=== PATIENT | male | born 1965 | race Caucasian/White ===

== ENCOUNTER 2021-11-01 10:11 | Outpatient (CLI) | payer BC, SELFPAY ==
[2021-11-01 14:35] LABS: Albumin* 4.3 g/dL (3.3-5.0); Chloride* 99 mmol/L (96-114); Sodium* 137 mmol/L (135-149)
[2021-11-01 14:36] LABS: Potassium* 4.1 mmol/L (3.6-5.1)
[2021-11-01 14:38] LABS: Alanine Aminotransferase* 54 U/L (4-50); Alkaline Phosphatase* 62 U/L (40-150); Aspartate Amino Transferase* 55 U/L (12-35); Bilirubin Total* 1.2 mg/dL (0.1-1.5); Blood Urea Nitrogen* 14 mg/dL (7-30); Carbon Dioxide* 28 mmol/L (20-32); Cholesterol* 183 mg/dL (90-199); Creatinine* 0.8 mg/dL (0.5-1.5); Estimated Glomerular Filt Rate 103 ml/min; Glucose* 132 mg/dL (60-115); Total Protein* 8.3 g/dL (6.0-8.3); Triglycerides* 101 mg/dL (40-149)
[2021-11-01 14:39] LABS: Calcium* 9.3 mg/dL (8.4-10.6); HDL Cholesterol* 56 mg/dL (>=40); LDL Cholesterol Calculated 107 mg/dL (<100)
[2021-11-01 15:08] LABS: PSA Screen* 0.63 ng/mL (0.10-4.00)
== END 2021-11-01 10:12 | disposition home or self-care (01) ==
PROVIDERS: PCP Emergency Medicine; Visit Provider Emergency Medicine
DX: Z00.00 Encounter for general adult medical examination without abnormal findings (principal); E78.5 Hyperlipidemia, unspecified; I10 Essential (primary) hypertension; F41.9 Anxiety disorder, unspecified; Z12.5 Encounter for screening for malignant neoplasm of prostate; E55.9 Vitamin D deficiency, unspecified
CPT/HCPCS: 80053; 80061; 84153

== ENCOUNTER 2021-11-07 08:45 | Outpatient (CLI) | payer BC, SELFPAY | END 2021-11-07 08:46 | disposition home or self-care (01) | LOC: OP CLINIC 08:46 | PROVIDERS: PCP Emergency Medicine; Visit Provider Surgery | DX: Z12.11 Encounter for screening for malignant neoplasm of colon (principal); K63.5 Polyp of colon; K57.30 Diverticulosis of large intestine without perforation or abscess without bleeding | CPT/HCPCS: 45385; 88305; 99153; J2250; J3010 ==

== ENCOUNTER 2022-05-14 14:24 | Outpatient (CLI) | payer BC, SELFPAY ==
[2022-05-14 14:33] LABS: Chloride* 101 mmol/L (96-114); Potassium* 3.8 mmol/L (3.6-5.1); Sodium* 139 mmol/L (135-149)
[2022-05-14 14:36] LABS: Carbon Dioxide* 28 mmol/L (20-32); Creatinine* 0.8 mg/dL (0.5-1.5); Estimated Glomerular Filt Rate 103 ml/min
[2022-05-14 14:37] LABS: Blood Urea Nitrogen* 12 mg/dL (7-30); Calcium* 8.5 mg/dL (8.4-10.6); Glucose* 112 mg/dL (60-115)
== END 2022-05-14 14:25 | disposition home or self-care (01) ==
PROVIDERS: PCP Emergency Medicine; Visit Provider Emergency Medicine
DX: I10 Essential (primary) hypertension (principal)
CPT/HCPCS: 80048

== ENCOUNTER 2022-07-11 16:32 | Outpatient (CLI) | payer BC, SELFPAY ==
[2022-07-11 18:11] LABS: Magnesium* 1.5 mg/dL (1.5-2.6)
== END 2022-07-11 16:33 | disposition home or self-care (01) ==
PROVIDERS: PCP Emergency Medicine; Visit Provider Emergency Medicine
DX: E83.51 Hypocalcemia (principal)
CPT/HCPCS: 83735

== ENCOUNTER 2022-07-16 14:45 | Outpatient (CLI) | payer BC, SELFPAY | END 2022-07-16 14:46 | disposition home or self-care (01) | LOC: RAD 14:45 | PROVIDERS: PCP Emergency Medicine; Visit Provider Emergency Medicine | DX: R94.31 Abnormal electrocardiogram [ECG] [EKG] (principal) | CPT/HCPCS: 93306; J1170; Q9957 ==

== ENCOUNTER 2022-07-27 11:09 | Outpatient (CLI) | payer BC, SELFPAY | END 2022-07-27 11:10 | disposition home or self-care (01) | PROVIDERS: PCP Emergency Medicine; Visit Provider Orthopaedic Surgery Sports Medicine | DX: Z01.818 Encounter for other preprocedural examination (principal) | CPT/HCPCS: 36415; 86850; 86900; 86901 ==

== ENCOUNTER 2022-07-30 09:09 | Day surgery (SDC) | payer BC, SELFPAY ==
[2022-07-30] VITALS (20 sets, daily range): BP systolic 112–172; BP diastolic 62–140; PULSE 74–100; RESP 14–18; TEMP 36.3–36.8; O2SAT 90–99; BMI 39.4
[2022-07-30] MEDS: LACTATED RINGERS 1000 ML 1,000 ML 100 ML IV ×2 (09:05→11:45)
--- NOTE | 2022-07-30 09:18 | W.ANESCHARGE ---
Anesthesia Charges Start Date/Time Anesthesia Start Date: 07/30/22 Anesthesia Start Time: 11:14 Stop Date/Time Anesthesia Stop Date: 07/30/22 Anesthesia Stop Time: 14:17
[2022-07-30] MEDS: ACETAMINOPHEN 500 MG TABLET 1000 MG PO ×2 (09:50→17:41)
[2022-07-30] MEDS: OXYCODONE (CR) 10 MG TAB.ER.12H PO (09:50)
[2022-07-30] MEDS: CELECOXIB 200 MG CAPSULE PO ×2 (09:50→21:25)
[2022-07-30 09:57] LABS: SARS PCR* Negative SARS-CoV-2 (Negative)
--- NOTE | 2022-07-30 09:58 | CRLHL7_ITS ---
For Patients: As a result of the Cures Act, medical imaging exams and procedure reports are released immediately into your electronic medical record. You may view this report before your referring provider. If you have questions, please contact your health care provider. Indication: Postop Technique: AP pelvis and left hip views Comparison: No comparison Findings: Left hip arthroplasty in satisfactory position. Postoperative edema and soft tissue gas. Dictated by Shabana Zhong MD @ 07/30/2022 2:51:01 PM (Electronically Signed)
[2022-07-30] MEDS: fentaNYL 100 MCG/2 ML inj IVP (11:03)
[2022-07-30] MEDS: MIDAZOLAM HCL 1 MG/ML inj IVP (11:03)
--- NOTE | 2022-07-30 11:08 | SUR.PREOP ---
TIME?OUT:?1100 PT/RN/MDA?VERIFICATION?OF?SURGICAL?SITE,?PROCEDURE,?AND?CONSENT OBTAINED?PRIOR?TO?INVASIVE?PROCEDURE.
[2022-07-30] MEDS: CEFAZOLIN 2 GM in 0.9 % SODIUM CHLORIDE Mini-bag 100 ML IVPB ×2 (11:30→17:41)
[2022-07-30] MEDS: TRANEXAMIC ACID 100 MG/ML INJ 1000 MG IV (11:35)
--- NOTE | 2022-07-30 11:45 | CRLHL7_ITS ---
For Patients: As a result of the Century Cures Act, medical imaging exams and procedure reports are released immediately into your electronic medical record. You may view this report before your referring provider. If you have questions, please contact your health care provider. INDICATION: Follow up left hip arthroplasty. Anterior approach. TECHNIQUE: Fluoroscopically guided evaluation of the left hip arthroplasty. FINDINGS: A single spot image obtained intraoperatively demonstrates a left hip arthroplasty. 43.5 seconds fluoroscopy time utilized. IMPRESSION: 43.5 seconds fluoroscopy time utilized intraoperatively. Dictated by Praveen Bay MD @ 07/30/2022 1:54:03 PM (Electronically Signed)
--- NOTE | 2022-07-30 12:08 | P.NB_ITS ---
Nerve Block Nerve Block Time Seen by Provider: 11:02 Date Seen: 07/30/22 Type of block requested by surgeon for post-operative analgesia: KELTON/LFCN Side: left Time out performed: Yes Verification of patient name: Yes Verification of date of : Yes Site marking: site marked Name of person performing procedure: Neo Continuous monitoring Was continuous monitoring of O2 sat, B/P, technical support consultant, recorded every 15 minutes?: Yes Procedure Checklist: sterile prep, needles and gloves Ultrasound guided. Images saved: Yes Medications given in 5ml increments after negative aspiration: Ropivicaine %: 0.5 mL: 30 Needle gauge: 20 Decadron (mg): 10 Precedex (mcg): 25 Patient tolerated procedure well: Yes Additional comments: Needle noted below psoas tendon needle noted adjacent to LFCN Block Charges Block Charge (with Pro Fee): Other Periph Nerve Block Use of Ultrasound Machine for Block: Yes- US Guidance/pain block
--- NOTE | 2022-07-30 13:23 | PM.ORPRC ---
Procedure Note Date of procedure: 07/30/22 Procedure: PREOPERATIVE DIAGNOSIS: 1. Left hip osteoarthritis, severe, primary POSTOPERATIVE DIAGNOSIS: 1. Left hip osteoarthritis, severe, primary PROCEDURE: 1. Left total hip arthroplasty-anterior approach 2. [id number] - intraoperative fluoroscopy up to 1 hour. SURGEON: Dc Duncan MD. ALINING INSPECTOR: Kaz Christina PA-C; LENO Alejandre - Of note, a skilled shipping and receiving assistant was critical for this case to aid in patient positioning, tissue retraction, limb manipulation/positioning, dislocation/relocation, patient safety, and closure. ANESTHESIA: General endotracheal anesthetic EBL: 500 mL IMPLANTS: DePuy J&J uncemented total hip [place] cup size 54, hole eliminator, +4 neutral liner Actis stem, high offset, size 9 +1.5 mm ceramic 36 mm head. COMPLICATIONS: None evident INDICATIONS: The patient is a pleasant 57-year-old male who has experienced severe left hip pain and difficulty bearing weight. Workup included x-rays which revealed severe osteoarthrosis in the hip. Given the deformity, the dysfunction, and the pain, as well as the failure of nonoperative management, recommendation was made for surgery. FINDINGS: Full-thickness chondral loss broadly throughout the femoral head and acetabulum. Osteophytes around the perimeter of the femoral head/neck junction. Moderate effusion upon entering the joint. DESCRIPTION OF PROCEDURE: Following a thorough discussion of risks, benefits, and alternatives consent was obtained and the left hip was marked. The patient was brought to the operating room and placed supine on the operating table. Induction of anesthesia was undertaken. 3 g IV Ancef and 1 g tranexamic acid was administered within 1 hr of incision preoperatively. Proper time-out was performed identifying proper patient, site, procedure. The operative extremity was prepped and draped in the appropriate sterile fashion using ChloraPrep after the patient was positioned on the [place] table with head in neutral alignment and all bony prominences well padded. C-arm fluoroscopic imaging was utilized to confirm proper pelvis rotation and position, and to get true AP films of both the contralateral left, and the affected left hip. This is for comparison. A longitudinal incision was made starting approximately 1 cm distal to the ASIS, and 3-4 cm lateral. The incision was extended distally aiming toward the lateral border the patella. Sharp incision through skin and bovie cautery through the subcutaneous tissue allowed identification of the TFL fascia. This was sharply divided, and the fascia bluntly released from the muscle fibers as we dissected medial. Upon coming to the medial border, we were able to retract the TFL laterally, and penetrated the deeper fascia and identify the crossing circumflex vessels. These were ligated/cauterized. The rectus was elevated from the capsule, and retractors placed laterally and medially along the femoral neck to help with visualization of the capsule. We then performed an inverted T capsulotomy. The capsule was tagged for later repair. Retractors were placed inside the capsule. The femoral neck was visualized after releasing medially down to the lesser trochanter, along the saddle laterally, and up onto the acetabulum. The femoral neck cut was made in line with our preoperative templating. The head was removed in a single piece, and sized. We turned our attention to acetabular preparation. Initially, the labrum was resected from around the perimeter, the pulvinar was excised, allowing us to visualize the false wall. We started the reaming with a 43 mm reamer. This was medialized down to the true wall. We then enlarged our reamers sequentially up to one size less than the selected cup size. We trialed at the same size and found it to have an excellent fit. The selected cup was then opened, inserted, and impacted in line with the goal of 40-45? of abduction, and 20-25? of anteversion. This was confirmed on C-arm fluoroscopic imaging to be in the appropriate/goal position. Once the cup was placed we placed a hole eliminator and a liner consistent with preop planning. Attention was turned to the femoral preparation. The limb was extended, externally rotated, and adducted. The posteromedial capsule was released, as retractors were placed allowing excellent access to the proximal femur. Initially a box toe buffer was followed by canal finder followed by various broaches. We broached sequentially up to size noted above, found it to have excellent rotational control, and trialing various heads and necks, revealed that appropriate neck offset, and the above noted head size provided the greatest stability, and rastafarian of length, and offset. C-arm fluoroscopic imaging confirmed position of the stem, as well as leg lengths, which were compared with the pre procedure all fluoroscopic images. Trial implants were removed, the real femoral stem inserted, as was the ceramic head. After reducing, the leg was placed through range of motion and stability was confirmed anterior, posterior, and lateral. A 3 min Betadine soak was then performed, and thorough irrigation with normal saline followed. Closure of the capsule was performed with #1 PDS. Bleeding was confirmed to be controlled at this stage, and the TFL fascia was closed with #0 strata fix. Subcutaneous, and subcuticular closure was performed with 2-0 Vicryl and 4-0 Monocryl, respectively. Dressings were applied, and the patient was awoken from anesthesia and transferred the PACU in stable condition. A skilled shipping and receiving assistant was critical for this case to aid in patient positioning, tissue retraction, proximal femur exposure, limb manipulation/positioning, dislocation/relocation, patient safety, and closure. PLAN: 1. Weight bear as tolerated operative extremity. 2. 23 hr perioperative antibiotics. 3. Ice. 4. PT/OT consults for ambulation assistance/mobility education. 5. Social work consult for discharge planning. 6. DVT prophylaxis with at SCDs, Kenan Lindae, and Xarelto x5 days followed by aspirin for a total of 1 month..
--- NOTE | 2022-07-30 14:19 | W.ANESCHARGE ---
Anesthesia Charges Start Date/Time Anesthesia Start Date: 07/30/22 Anesthesia Start Time: 11:14 Stop Date/Time Anesthesia Stop Date: 07/30/22 Anesthesia Stop Time: 14:17
[2022-07-30] MEDS: fentaNYL 100 MCG/2 ML inj 50 MCG IVP (14:30)
[2022-07-30] MEDS: LACTATED RINGERS 1000 ML 1,000 ML 75 ML IV (14:56)
[2022-07-30] MEDS: HYDROmorphone 0.5 mg/0.5 ml inj IVP (15:11)
[2022-07-30] MEDS: OXYCODONE 5 MG TABLET PO (16:44)
[2022-07-30] MEDS: PHENobarbitaL 260 MG in 0.9 % SODIUM CHLORIDE 100 ml 100 ML 208 MG IVPB (16:56)
--- NOTE | 2022-07-30 19:05 | PC.NURSE ---
Pt A&O, but drowsy and at times slow to respond. Answering questions appropriately. With rest needing 1L of 02 with sats in the low 90s. Pt verbalizes daily alcohol usage, at this time, no signs of withdrawal. Pt is rating pain 3-7/10. With 6/10 being comfortable. PRN pain medications used with relief. Dressing c/d/i. A1 with walker. Tolerating regular diet.
[2022-07-30] MEDS: 0.9 % SODIUM CHLORIDE 500 ML IV (19:35)
--- NOTE | 2022-07-30 19:36 | PM.IMCN1 ---
Date of Consult Patient: [facility] Patient Consult date: 07/30/22 Requesting Physician: Orthopedics Primary Care Provider: Tianna Paz Consult Narrative Reason for consult: Postop management of DMT2, HTN, alcohol abuse, anxiety Narrative: Francis Hardy is a 57 year old man with known severe, advanced left coxarthrosis presents for an elective left total hip arthroplasty today. This is undertaken successfully per Dr. Dc Duncan under general anesthesia and endotracheal intubation with an estimated blood loss of 500 mL. Presently pain is well controlled. Review of Systems Status of ROS: Reports: 10 or more systems reviewed and unremarkable except as noted in History and below Narrative: Denies chest heaviness, pressure, tightness, or pain. Denies dyspnea at rest, dyspnea with exertion, paroxysmal nocturnal dyspnea, orthopnea. Denies cough. Denies syncope or near-syncope. Denies orthostasis, lightheadedness, vertigo. Denies nausea or vomiting. Still sleepy and tired. Denies palpitations, chest fluttering, or claudication. No recent fever, rigors, diaphoresis. Denies polyuria, polydipsia, polyphagia. Denies night sweats, weight gain, or weight loss. Denies hypoglycemic episodes. Currently not taking medications for his diagnosis of diabetes mellitus type 2. Last hemoglobin A1c was 6. He informs me that he drinks vodka daily, usually 4 drinks every night, sometimes more. Denies alcohol withdrawal symptoms. No prior history of delirium tremens or seizures. Does chew tobacco, about 2 tins weekly. Denies use of street or recreational drugs. 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 Designates his as his power of brand analyst for health should that be required. Requests full resuscitation in the event of cardiopulmonary demise. [facility] Medical History Abnormal EKG ?R94.31 - Abnormal electrocardiogram [ECG] [EKG] (ICD-10) Alcohol abuse ?F10.10 - Alcohol abuse, uncomplicated (ICD-10) Diabetes mellitus type 2 in obese ?E11.69 - Type 2 diabetes mellitus with other specified complication (ICD-10) ?E66.9 - Obesity, unspecified (ICD-10) Elevated fasting glucose ?R73.01 - Impaired fasting glucose (ICD-10) Essential hypertension ?I10 - Essential (primary) hypertension (ICD-10) Groin pain ?R10.30 - Lower abdominal pain, unspecified (ICD-10) Hypocalcemia ?E83.51 - Hypocalcemia (ICD-10) LVH (left ventricular hypertrophy) ?I51.7 - Cardiomegaly (ICD-10) Osteoarthritis of left hip ?M16.12 - Unilateral primary osteoarthritis, left hip (ICD-10) Pre-op testing ?Z01.818 - Encounter for other preprocedural examination (ICD-10) Tubular adenoma ?D36.9 - Benign neoplasm, unspecified site (ICD-10) Weight loss counseling, encounter for ?Z71.3 - Dietary counseling and surveillance (ICD-10) Family History Family/Other High blood pressure Mother Pancreatic cancer Myocardial infarction, Onset Age: 52 Stroke, Onset Age: 60 Father Lung cancer Social History Narrative: 2-10 vodka drinks a week Smoking Status: Never smoker How often do you have a drink containing alcohol: 2-3 times a week Alcohol type: hard liquor How many standard drinks containing alcohol do you have on a typical day: 3 or 4 How often do you have six or more drinks on one occasion: Less than monthly AUDIT-C Alcohol total score: 5 Non-prescribed substance use: denies use Caffeine: No Meds Home Medications and Allergies Home Medications Medication Instructions Recorded Confirmed Type atorvastatin 40 mg tablet 40 mg PO DAILY 07/29/22 07/30/22 History irbesartan 75 mg tablet 75 mg PO DAILY 07/29/22 07/30/22 History Allergies Allergy/AdvReac Type Severity Reaction Status Date / Time amlodipine Allergy Intermediate Verified 07/11/22 07:49 pollen extracts Allergy Mild Congested Verified 07/30/22 09:18 Exam Narrative: Exam Narrative: Appears sleepy. Nevertheless able to interact appropriately. Does not fall asleep during the course of my meeting and evaluating him. Appears comfortable and in no acute distress. Alert and oriented to self, place, time, situation. Friendly, cooperative. Mood and affect are congruent. Vision and hearing are grossly normal. Pupils equally round and reactive to light and accommodation. No icterus or conjunctival injection. Midline nasal septum. Dentition in fair repair. Midline trachea. Supple neck. No adenopathy. Lungs are clear to auscultation without wheezing, rhonchi, or rales. No CVA tenderness. Heart tones with regular rhythm, normal S1-S2, without murmur, gallop, or rub. Abdomen with active bowel sounds, soft, nontender. No tremor, asterixis, or ataxia. Moves all 4 extremities. No focal motor neurologic deficits. Skin is warm, dry, intact. Const: Vital Signs, click to edit/add: Vital Signs - 24 hr 07/30/22 11:00 07/30/22 11:05 07/30/22 14:10 Temperature 98.3 F 97.4 F L Pulse Rate 74 77 80 Pulse Rate [Right Pulse Oximeter] Respiratory Rate 16 16 15 Blood Pressure 172/99 H 129/94 H 122/62 Blood Pressure [Le ft Arm] Pulse Oximetry 98 99 90 Oxygen Delivery Me thod Room Air Nasal Cannula Room Air Oxygen Flow Rate 2 07/30/22 14:40 07/30/22 14:15 07/30/22 14:20 Temperature Pulse Rate 82 82 80 Pulse Rate [Right Pulse Oximeter] Respiratory Rate 14 18 18 Blood Pressure 113/78 112/80 122/80 Blood Pressure [Le ft Arm] Pulse Oximetry 95 97 96 Oxygen Delivery Me thod OxyMask OxyMask OxyMask Oxygen Flow Rate 2 5 5 07/30/22 14:25 07/30/22 14:30 07/30/22 14:35 Temperature Pulse Rate 80 80 82 Pulse Rate [Right Pulse Oximeter] Respiratory Rate 17 15 15 Blood Pressure 115/79 112/75 113/82 Blood Pressure [Le ft Arm] Pulse Oximetry 96 94 94 Oxygen Delivery Me thod OxyMask OxyMask OxyMask Oxygen Flow Rate 3 3 3 07/30/22 15:58 07/30/22 15:00 07/30/22 15:30 Temperature 97.6 F 97.5 F L Pulse Rate 80 Pulse Rate [Right Pulse Oximeter] 86 83 Respiratory Rate 16 16 16 Blood Pressure Blood Pressure [Le ft Arm] 117/74 117/89 118/78 Pulse Oximetry 95 94 Oxygen Delivery Me thod Nasal Cannula Nasal Cannula Nasal Cannula Oxygen Flow Rate 2 2 2 07/30/22 15:45 07/30/22 16:15 07/30/22 16:45 Temperature 97.9 F 98.1 F Pulse Rate Pulse Rate [Right Pulse Oximeter] 79 78 83 Respiratory Rate 16 16 16 Blood Pressure Blood Pressure [Le ft Arm] 122/74 127/79 144/95 H Pulse Oximetry 93 92 93 Oxygen Delivery Me thod Nasal Cannula Nasal Cannula Nasal Cannula Oxygen Flow Rate 2 1 1 07/30/22 18:00 07/30/22 19:00 Temperature 98.1 F Pulse Rate Pulse Rate [Right Pulse Oximeter] 96 94 Respiratory Rate 16 16 Blood Pressure Blood Pressure [Le ft Arm] 144/140 H 127/74 Pulse Oximetry 90 92 Oxygen Delivery Me thod Room Air Nasal Cannula Oxygen Flow Rate 1 Documenting provider has reviewed patient's vital signs: yes Assessment and Plan Assessment and plan (1) Osteoarthritis of left hip: Problem comment: severe, approaching [id number] Status: Chronic (2) Status post total replacement of left hip: Problem comment: 24 able to turn 23, Dr. Dc Duncan, [facility], [place], [place]. Status: Acute (3) Essential hypertension: Status: Acute (4) LVH (left ventricular hypertrophy): Problem comment: Severe by echo 2022 Status: Acute (5) Alcohol abuse: Status: Acute (6) Anxiety: Status: Acute (7) Depression: Status: Acute (8) Hyperlipidemia: Status: Acute Plan 1. Reviewed impression with patient and . 2. Resume his antihypertension medications. 3. Initiate CIWA driven protocol for possible alcohol withdrawal. 4. Given the Sheer volume of alcohol that he consumes on a daily basis, I will preemptively administer phenobarbital 260 mg IV. 5. Will monitor patient with Orthopedic surgery during his stay in the hospital. 6. Initiated discussion with patient and regarding my concern for a large volume of alcohol that he consumes on a daily basis. Suggested that he consider speaking with his primary care physician about this in the future.
[2022-07-30] MEDS: SENNOSIDES 1 TAB TABLET 2 TAB PO (21:26)
[2022-07-31] MEDS: 0.9 % SODIUM CHLORIDE 500 ML IV (00:41)
[2022-07-31] MEDS: OXYCODONE 5 MG TABLET PO ×3 (00:42→09:55)
[2022-07-31] MEDS: ACETAMINOPHEN 500 MG TABLET 1000 MG PO ×2 (00:42→05:39)
[2022-07-31] MEDS: CEFAZOLIN 2 GM in 0.9 % SODIUM CHLORIDE Mini-bag 100 ML IVPB (01:16)
[2022-07-31] MEDS: SODIUM CHLORIDE 0.9 % (FLUSH) 10 ML SYRINGE IVF (02:40)
[2022-07-31] MEDS: HYDROmorphone 0.5 mg/0.5 ml inj IVP (02:40)
[2022-07-31 03:00] VITALS: BP 152/102; PULSE 87; RESP 16; TEMP 36.8; O2SAT 93
--- NOTE | 2022-07-31 04:44 | PC.NURSE ---
Shift note: Pt was taking over from the ongoing staff at 1900 in a conscious state, alert and oriented, however pt had not micturated since received to the unit. N/S 500ml bolus was given at 1930 and was repeated at 2330 together with encouragement to take oral fluid. Pt had 700ml of urine by 0400. Doing well ambulating with A1, walker and GB. Pain level has been rated between 3 and 6 and PRN pain med given as ordered. Dressing appears clean and dry. Ice pack applied to incision site. Tolerated regular diet and liberal fluid well without any complications. Bowel sound active but has not pass gas or BM yet. R/L running at 75d/m.
[2022-07-31 06:38] LABS: Basophils Percent Auto 0.1 % (0.0-3.0); Hematocrit 36.7 % (37.0-53.0); Hemoglobin* 12.8 gm/dL (13.5-17.5); Immature Granulocytes Pct Auto 1.1 %; Lymphocytes Percent Auto 7.4 % (20-44); Mean Corpuscular HGB Conc 35 gm/dL (32-36); Mean Corpuscular Hemoglobin 34 pg (26-34); Mean Corpuscular Volume 98 fL (80-100); Monocytes Percent Auto 6.4 % (0.0-11.0); Platelet Count* 209 K/uL (140-440); RDW Coefficient of Variation % 11.7 % (11.5-15.5); Red Blood Count 3.74 m/uL (4.30-5.90); White Blood Count* 15.95 K/uL (4.50-11.00)
[2022-07-31 06:42] LABS: Slide Review Reflex No
[2022-07-31 06:48] LABS: Sodium* 134 mmol/L (135-149)
[2022-07-31 06:51] LABS: Blood Urea Nitrogen* 19 mg/dL (7-30); Est. Creatinine Clearance* 80.52; Estimated Glomerular Filt Rate 87 ml/min; Potassium* 3.9 mmol/L (3.6-5.1)
[2022-07-31 07:46] VITALS: BP 146/90; PULSE 83; RESP 16; TEMP 36.5; O2SAT 95
[2022-07-31 08:07] VITALS: O2SAT 95
[2022-07-31] MEDS: SENNOSIDES 1 TAB TABLET 2 TAB PO (08:21)
[2022-07-31] MEDS: CELECOXIB 200 MG CAPSULE PO (08:22)
[2022-07-31] MEDS: CITALOPRAM HYDROBROMIDE 20 MG TABLET 40 MG PO (08:22)
[2022-07-31] MEDS: RIVAROXABAN 10 MG TABLET PO (08:23)
[2022-07-31] MEDS: IRBESARTAN 150 MG TABLET 75 MG PO (08:30)
[2022-07-31 09:22] VITALS: BP 113/78; PULSE 80; RESP 16; TEMP 36.5
--- NOTE | 2022-07-31 10:27 | PC.NURSE ---
D/c: Pt A&O. SBA w/ walker and gait belt. Pt rating pain 10/15, PRN oxycodone given. Dressing c/d/i. Tolerating meals, denies n/v. IV removed with tip intact. D/c instructions given verbally to pt and a written copy sent home. All questions answered. D/c home with at 1015
--- NOTE | 2022-07-31 13:21 | PM.ORPN ---
Subjective Subjective Date Seen: 07/31/22 Principal diagnosis: Status postop day 1, left total hip arthroplasty - anterior approach Interval history: Patient reports doing well. No acute events over night. Pain managed with scheduled /PRN medications and ice. DVT prophylaxis rivaroxaban, bilateral knee high Kenan stockings, and SCDs. Denies fevers, chills, aches, N/V, CP, SOB/ALVA, tachycardia, or lightheadedness. Ortho Exam Narrative Exam Narrative: -Patient appears comfortable in recliner; no apparent acute distress -Alert and oriented times 3 -Operative hip swollen; soft tissues supple; no obvious erythema. Ecchymosis minimal. Warmth appropriate -Surgical dressing clean, dry, intact; no obvious drainage, no erythematous streaking peripheral to the bandage -Bilateral calves soft and supple; no significant swelling, edema, tenderness, erythema, discoloration, warmth, or palpable cords -2+ DP/PT pulses, intact dermatomes and myotomes distally (5/5 strength). Mild numbness about the lateral femoral cutaneous nerve distribution. Const Vital Signs, click to edit/add: Vital Signs - 24 hr 07/30/22 14:10 07/30/22 14:40 07/30/22 14:15 Temperature 97.4 F L Pulse Rate 80 82 82 Pulse Rate [Right Pulse Oximeter] Respiratory Rate 15 14 18 Blood Pressure 122/62 113/78 112/80 Blood Pressure [Left Arm] Pulse Oximetry 90 95 97 Oxygen Delivery Method Room Air OxyMask OxyMask Oxygen Flow Rate 2 5 07/30/22 14:20 07/30/22 14:25 07/30/22 14:30 Temperature Pulse Rate 80 80 80 Pulse Rate [Right Pulse Oximeter] Respiratory Rate 18 17 15 Blood Pressure 122/80 115/79 112/75 Blood Pressure [Left Arm] Pulse Oximetry 96 96 94 Oxygen Delivery Method OxyMask OxyMask OxyMask Oxygen Flow Rate 5 3 3 07/30/22 14:35 07/30/22 15:58 07/30/22 15:00 Temperature 97.6 F 97.5 F L Pulse Rate 82 80 Pulse Rate [Right Pulse Oximeter] 86 Respiratory Rate 15 16 16 Blood Pressure 113/82 Blood Pressure [Left Arm] 117/74 117/89 Pulse Oximetry 94 95 Oxygen Delivery Method OxyMask Nasal Cannula Nasal Cannula Oxygen Flow Rate 3 2 2 07/30/22 15:30 07/30/22 15:45 07/30/22 16:15 Temperature 97.9 F 98.1 F Pulse Rate Pulse Rate [Right Pulse Oximeter] 83 79 78 Respiratory Rate 16 16 16 Blood Pressure Blood Pressure [Left Arm] 118/78 122/74 127/79 Pulse Oximetry 94 93 92 Oxygen Delivery Method Nasal Cannula Nasal Cannula Nasal Cannula Oxygen Flow Rate 2 2 1 07/30/22 16:45 07/30/22 18:00 07/30/22 19:00 Temperature 98.1 F Pulse Rate Pulse Rate [Right Pulse Oximeter] 83 96 94 Respiratory Rate 16 16 16 Blood Pressure Blood Pressure [Left Arm] 144/95 H 144/140 H 127/74 Pulse Oximetry 93 90 92 Oxygen Delivery Method Nasal Cannula Room Air Nasal Cannula Oxygen Flow Rate 1 1 07/30/22 20:08 07/30/22 23:00 07/30/22 21:00 Temperature 98.0 F 98.2 F 98 F Pulse Rate Pulse Rate [Right Pulse Oximeter] 100 93 95 Respiratory Rate 16 16 16 Blood Pressure Blood Pressure [Left Arm] 139/82 133/86 133/86 Pulse Oximetry 92 90 90 Oxygen Delivery Method Nasal Cannula Room Air Room Air Oxygen Flow Rate 1 1 07/31/22 03:00 07/31/22 07:46 07/31/22 08:07 Temperature 98.2 F 97.7 F Pulse Rate Pulse Rate [Right Pulse Oximeter] 87 83 Respiratory Rate 16 16 Blood Pressure Blood Pressure [Left Arm] 152/102 H 146/90 H Pulse Oximetry 93 95 95 Oxygen Delivery Method Room Air Room Air Room Air Oxygen Flow Rate 07/31/22 09:22 Temperature 97.7 F Pulse Rate 80 Pulse Rate [Right Pulse Oximeter] Respiratory Rate 16 Blood Pressure 113/78 Blood Pressure [Left Arm] Pulse Oximetry Oxygen Delivery Method Oxygen Flow Rate Assessment and Plan Assessment and plan (1) Osteoarthritis of left hip: Problem details: severe, approaching [id number] Status: Chronic (2) Status post total replacement of left hip: Problem details: POD 1 left total hip arthroplasty - anterior approach Dr. Dc Duncan Status: Acute (3) Essential hypertension: Status: Acute (4) LVH (left ventricular hypertrophy): Problem details: Severe by echo 2022 Status: Acute (5) Alcohol abuse: Status: Acute (6) Anxiety: Status: Acute (7) Depression: Status: Acute (8) Hyperlipidemia: Status: Acute Plan - Complete 23 hour perioperative antibiotics. - PT/OT consult for education and assistance. - Social work consult for discharge planning - Prescribed analgesics as needed - DVT prophylaxis: Rivaroxaban, bilateral knee high Kenan Hose stockings and SCDs - Anticipation is for discharge to home with spouse 07/31/2022 if the patient remains medically stable, pain is controlled, and they are safe with mobilization.
--- NOTE | 2022-07-31 13:22 | PM.DS1 ---
DS: Providers Provider Date Seen: 07/31/22 Date of admission: Med/Surg Recovery 07/30/2022 Primary care physician: Tianna Paz Consults: 07/30/22 14:48 Consult to Occupational Therapy [CONS] Routine Comment: Reason(s) for OT Consult:: ADLs Prior to Discharge Any Restrictions?:: No Restrictions Comment: Consult to Physical Therapy [CONS] Routine Comment: Ambulate in the lubin today Reason(s) for PT Consult:: Evaluate and Treat Any Restrictions?:: No Restrictions Comment: Nursing Activity Consult to Physician [CONS] Routine Comment: Consulting Provider: Hospitalists Has provider been notified: No Consult to Citizen Participation Specialist [CONS] Routine Comment: Reason for Consult:: Discharge Planning Needs Attending Physician on discharge: Dc Duncan MD Date of Discharge: 07/31/22 DS: Diagnosis Discharge Diagnosis (1) Status post total replacement of left hip: Status: Acute Problem details: POD 1 left total hip arthroplasty - anterior approach Dr. Dc Duncan DS: Summary Hospital Course Hospital Course: The patient has a history of left hip osteoarthritis, primary, severe. After appropriate preoperative evaluation, the patient underwent left total hip arthroplasty. Postoperatively given anticoagulation for deep vein thrombosis prophylaxis. They progressed to PT/OT and were felt ready and prepared for discharge to home with appropriate pain medication and anticoagulation medications. Status at Discharge Functional status at discharge: uses cane/walker Overall status at discharge: patient is progressing back to baseline Time Spent with Patient Time attestation: Total time spent providing and/or coordinating discharge services: Time spent: Less than 30 minutes Exam Const: Vital Signs, click to edit/add: Vital Signs - 24 hr 07/30/22 14:10 07/30/22 14:40 07/30/22 14:15 Temperature 97.4 F L Pulse Rate 80 82 82 Pulse Rate [Right Pulse Oximeter] Respiratory Rate 15 14 18 Blood Pressure 122/62 113/78 112/80 Blood Pressure [Le ft Arm] Pulse Oximetry 90 95 97 Oxygen Delivery Me thod Room Air OxyMask OxyMask Oxygen Flow Rate 2 5 07/30/22 14:20 07/30/22 14:25 07/30/22 14:30 Temperature Pulse Rate 80 80 80 Pulse Rate [Right Pulse Oximeter] Respiratory Rate 18 17 15 Blood Pressure 122/80 115/79 112/75 Blood Pressure [Le ft Arm] Pulse Oximetry 96 96 94 Oxygen Delivery Me thod OxyMask OxyMask OxyMask Oxygen Flow Rate 5 3 3 07/30/22 14:35 07/30/22 15:58 07/30/22 15:00 Temperature 97.6 F 97.5 F L Pulse Rate 82 80 Pulse Rate [Right Pulse Oximeter] 86 Respiratory Rate 15 16 16 Blood Pressure 113/82 Blood Pressure [Le ft Arm] 117/74 117/89 Pulse Oximetry 94 95 Oxygen Delivery Me thod OxyMask Nasal Cannula Nasal Cannula Oxygen Flow Rate 3 2 2 07/30/22 15:30 07/30/22 15:45 07/30/22 16:15 Temperature 97.9 F 98.1 F Pulse Rate Pulse Rate [Right Pulse Oximeter] 83 79 78 Respiratory Rate 16 16 16 Blood Pressure Blood Pressure [Le ft Arm] 118/78 122/74 127/79 Pulse Oximetry 94 93 92 Oxygen Delivery Me thod Nasal Cannula Nasal Cannula Nasal Cannula Oxygen Flow Rate 2 2 1 07/30/22 16:45 07/30/22 18:00 07/30/22 19:00 Temperature 98.1 F Pulse Rate Pulse Rate [Right Pulse Oximeter] 83 96 94 Respiratory Rate 16 16 16 Blood Pressure Blood Pressure [Le ft Arm] 144/95 H 144/140 H 127/74 Pulse Oximetry 93 90 92 Oxygen Delivery Me thod Nasal Cannula Room Air Nasal Cannula Oxygen Flow Rate 1 1 07/30/22 20:08 07/30/22 23:00 07/30/22 21:00 Temperature 98.0 F 98.2 F 98 F Pulse Rate Pulse Rate [Right Pulse Oximeter] 100 93 95 Respiratory Rate 16 16 16 Blood Pressure Blood Pressure [Le ft Arm] 139/82 133/86 133/86 Pulse Oximetry 92 90 90 Oxygen Delivery Me thod Nasal Cannula Room Air Room Air Oxygen Flow Rate 1 1 07/31/22 03:00 07/31/22 07:46 07/31/22 08:07 Temperature 98.2 F 97.7 F Pulse Rate Pulse Rate [Right Pulse Oximeter] 87 83 Respiratory Rate 16 16 Blood Pressure Blood Pressure [Le ft Arm] 152/102 H 146/90 H Pulse Oximetry 93 95 95 Oxygen Delivery Me thod Room Air Room Air Room Air Oxygen Flow Rate 07/31/22 09:22 Temperature 97.7 F Pulse Rate 80 Pulse Rate [Right Pulse Oximeter] Respiratory Rate 16 Blood Pressure 113/78 Blood Pressure [Le ft Arm] Pulse Oximetry Oxygen Delivery Me thod Oxygen Flow Rate DS: Data Data Completed and Pending Labs on day of discharge: Labs from last 24 hours 07/31/22 06:00 WBC 15.95 H RBC 3.74 L Hgb 12.8 L Hct 36.7 L MCV 98 MCH 34 MCHC 35 RDW Coeff of Tere 11.7 Plt Count 209 Neut % (Auto) 85.0 H Lymph % (Auto) 7.4 L Pettis % (Auto) 6.4 Eos % (Auto) 0.0 Baso % (Auto) 0.1 Neut # (Auto) 13.60 H Lymph # (Auto) 1.20 Pettis # (Auto) 1.00 H Eos # (Auto) 0.00 Baso # (Auto) 0.00 Sodium 134 L Potassium 3.9 BUN 19 Creatinine 1.0 Estimated Creat Clear 80.52 Estimated GFR 87 Discharge Plan Discharge Disposition: Home, Self-Care Discharging Surgeon: Dc Duncan Follow-Up Appointment: 1 week PO with Kaz VALDEZ Prescriptions: New acetaminophen 500 mg capsule 500 - 1,000 mg PO Q6H MDD 4000mg PRNQty: 100 0RF aspirin 81 mg tablet,delayed release (DR/EC) 81 mg PO BID Qty: 50 0RF Rx Instructions: Medication to help prevent blood clots postoperatively; take TWICE daily. oxycodone 5 mg tablet 2.5 - 5 mg PO Q4-6H MDD 6 PRN (Reason: pain) Qty: 42 0RF Rx Instructions: Take as needed for postop pain: 2.5mg mild pain, 5mg moderate-severe pain; wean as tolerated. rivaroxaban 10 mg tablet 10 mg PO DAILY Qty: 4 0RF Rx Instructions: Medication for deep vein clot prevention post surgery. Complete this medication before starting Aspirin. sennosides-docusate sodium [Senna-S] 8.6-50 mg tablet 1 - 4 tab-cap PO BID PRN (Reason: constipation) Qty: 60 0RF Rx Instructions: Hold medication if experiencing loose stools. Continued carvedilol phosphate 40 mg capsule, ER multiphase 24 hr 40 mg PO DAILY Qty: 90 1RF citalopram 40 mg tablet 40 mg PO DAILY Qty: 90 3RF hydrochlorothiazide 25 mg tablet 25 mg PO DAILY Qty: 90 3RF atorvastatin 40 mg tablet 40 mg PO DAILY irbesartan 75 mg tablet 75 mg PO DAILY Activity Level: Activity as Tolerated, Weight Bearing as Tolerated, Use Cane and Use Walker Activity Detail: Wound: ?Do not remove original dressing; we will remove this at first postop visit in 1 week. Only remove dressing if integrity is in question. ?No immersing wound in water; showering okay; light scrub with your hand and body soap, rinse, dab dry ?Sutures are under the skin, will dissolve; allow surgical glue to come off naturally; do not scrub the wound or apply ointments/lotions ?Call our office with any redness that streaks, excessive drainage from the wound, or wound gapping. Ice/Elevate: ?Ice as needed for swelling and discomfort (cryocuff or ice pack); elevate frequently above the heart VALDEMAR socks: ?Wear for 1 month, remove for 1 hour 3 times per day ?These are frustrating to take on/off, but are important for blood clot prevention for 1 month after surgery Blood Clot Prevention (DVT): ?Medication: Rivaroxaban, and transition to 81 mg aspirin by mouth twice daily (total one month of protection). Driving: ?Do not drive while taking narcotic pain medication ?Anticipate 4-6 weeks no driving if operative leg is driving leg Dental: ?No elective dental work for 6 months post-op. If there is an urgent/emergent dental need, contact our office for an antibiotic prescription. Smoking/Alcohol: ?Do not smoke; do no drink alcohol especially when taking postoperative oral narcotic medication Seek Care from you Primary Care Provider if you experience the following issues in the postoperative phase and beyond: ?Bacterial infections such as: pneumonia, bacterial skin infection (cellulitis), UTI, high fever, chills unrelated to the operative body part - call your primary care physician urgently for treatment in hopes to protect your health and the metal implant. Referrals: ?PT, OT per patient preference - evaluate treat total hip arthroplasty protocol (gait training, ROM, ADLs) Follow up: ?Ortho surgeon follow-up in 6 weeks; repeat radiographs AP pelvis, cross-table lateral operative hip ?PA-C visit in 1 week *If there are any acute concerns regarding your surgery, please call our orthopedic clinic ([phone]) Discharge Diet: Diabetic and 2 gm Sodium Diet Detail: Recommend you cut back on your alcohol consumption significantly, maximum of 7 drinks a week and preferably discontinue alcohol consumption altogether for long-term healthcare benefit. Patient Instructions: Acetaminophen (By mouth), Aspirin (By mouth), Oxycodone, Rapid Release (By mouth), Rivaroxaban (By mouth), Senna (By mouth) (Sen, Senna-lax), Total Hip Replacement (DC) Forms: Work/School Release Follow-up: Nydia Harrison PA-C [Physician Ticket Collector Or Usher] - 08/07/22 1:00 pm ([facility] follow with Nydia DOWNEY) Tianna aPz MD [Primary Care Provider] - Discharge Orders: Discharge Order (Routine); Ordered 07/31/22 Ordered By: Kaz Christina Consulting provider completed their portion of the discharge: Yes
== END 2022-07-31 10:15 | disposition home or self-care (01) ==
LOC: OR 09:09 → MEDSURG 09:12
PROVIDERS: PCP Emergency Medicine; Visit Provider Orthopaedic Surgery Sports Medicine
PROC: (CPT 27130; principal; 2022-07-30 11:45)
DX: M16.12 Unilateral primary osteoarthritis, left hip (principal); F10.10 Alcohol abuse, uncomplicated; I10 Essential (primary) hypertension; F41.9 Anxiety disorder, unspecified; E11.9 Type 2 diabetes mellitus without complications; F17.220 Nicotine dependence, chewing tobacco, uncomplicated; I11.9 Hypertensive heart disease without heart failure; F32.A Depression, unspecified; E78.5 Hyperlipidemia, unspecified
CPT/HCPCS: 27130; 01214; 36415; 64450; 73501; 76000; 76942; 82565; 82962; 84132; 84295; 84520; 85025; 87635; 97110; 97116; 97161; 97165; 97535; A9270; C1776; J0330; J0690; J1100; J1170; J2250; J2370; J2405; J2560; J2704; J2710; J2795; J3010; J7120

== ENCOUNTER 2022-08-20 10:30 | Outpatient (RCR) | payer BC, SELFPAY | END 2022-12-18 23:59 | disposition home or self-care (01) | PROVIDERS: PCP Emergency Medicine; Visit Provider Orthopaedic Surgery Sports Medicine | DX: M16.12 Unilateral primary osteoarthritis, left hip (principal); Z96.642 Presence of left artificial hip joint; Z51.89 Encounter for other specified aftercare | CPT/HCPCS: 97110; 97112; 97116; 97161 ==

== ENCOUNTER 2023-02-26 08:21 | Outpatient (CLI) | payer BC, SELFPAY | END 2023-02-26 08:22 | disposition home or self-care (01) | LOC: NFLDREF 03-01 19:02 | PROVIDERS: PCP Emergency Medicine; Referring Provider Emergency Medicine; Visit Provider Emergency Medicine | DX: E11.69 Type 2 diabetes mellitus with other specified complication (principal); E66.9 Obesity, unspecified; I10 Essential (primary) hypertension; Z12.5 Encounter for screening for malignant neoplasm of prostate; E78.5 Hyperlipidemia, unspecified | CPT/HCPCS: 80053; 80061; 84153 ==

== ENCOUNTER 2023-03-05 12:51 | Outpatient (CLI) | payer BC, SELFPAY | END 2023-03-05 12:52 | disposition home or self-care (01) | PROVIDERS: PCP Emergency Medicine; Visit Provider Emergency Medicine | DX: Z00.00 Encounter for general adult medical examination without abnormal findings (principal); D75.89 Other specified diseases of blood and blood-forming organs; E11.69 Type 2 diabetes mellitus with other specified complication; E66.9 Obesity, unspecified; I10 Essential (primary) hypertension; E83.51 Hypocalcemia; R74.01 Elevation of levels of liver transaminase levels; R79.89 Other specified abnormal findings of blood chemistry; E78.5 Hyperlipidemia, unspecified | CPT/HCPCS: 82607; 82746 ==

== ENCOUNTER 2023-05-07 12:42 | Outpatient (CLI) | payer BC, SELFPAY | END 2023-05-07 12:43 | disposition home or self-care (01) | PROVIDERS: PCP Emergency Medicine; Visit Provider Emergency Medicine | DX: E11.9 Type 2 diabetes mellitus without complications (principal); E78.2 Mixed hyperlipidemia; I10 Essential (primary) hypertension | CPT/HCPCS: 80048; 80061 ==

== ENCOUNTER 2024-04-14 16:03 | Outpatient (CLI) | payer BC, SELFPAY | END 2024-04-14 16:04 | disposition home or self-care (01) | PROVIDERS: PCP Emergency Medicine; Visit Provider Emergency Medicine | DX: I10 Essential (primary) hypertension (principal); Z12.5 Encounter for screening for malignant neoplasm of prostate | CPT/HCPCS: 80053; G0103 ==

== ENCOUNTER 2024-04-27 10:30 | Outpatient (CLI) | payer BC, SELFPAY ==
--- NOTE | 2024-04-27 10:45 | CRLHL7_ITS ---
For Patients: As a result of the Century Cures Act, medical imaging exams and procedure reports are released immediately into your electronic medical record. You may view this report before your referring provider. If you have questions, please contact your health care provider. INDICATION: ALT greater than 2 times normal TECHNIQUE: Conventional two-dimensional vega-scale ultrasound of the right upper quadrant. COMPARISON: None FINDINGS: The gallbladder is normal, with no evidence of stones. No gallbladder wall thickening or pericholecystic fluid is demonstrated. The patient is reportedly not tender over the gallbladder. No biliary ductal dilation is evident. The common bile duct measures 4 mm. Fatty change is demonstrated in the liver. The liver is otherwise grossly negative. The pancreatic head and body are grossly negative. The pancreatic tail is suboptimally visualized. The right kidney is unremarkable except for a 1.0 cm parenchymal cyst. The visualized portions of the abdominal aorta and inferior vena cava are negative. IMPRESSION: 1. Fatty liver. 2. Normal gallbladder and bile ducts. 3. Pancreatic head and body grossly negative. Pancreatic tail suboptimally visualized. 4. 1.0 cm right renal parenchymal cyst. Dictated by Erik Uriarte MD @ 04/27/2024 5:22:21 PM (Electronically Signed)
== END 2024-04-27 10:31 | disposition home or self-care (01) ==
LOC: US 10:30
PROVIDERS: PCP Emergency Medicine; Visit Provider Emergency Medicine
DX: R74.01 Elevation of levels of liver transaminase levels (principal); K76.0 Fatty (change of) liver, not elsewhere classified; N28.1 Cyst of kidney, acquired
CPT/HCPCS: 76705

== ENCOUNTER 2025-03-25 15:32 | Outpatient (CLI) | payer BC, SELFPAY | END 2025-03-25 15:33 | disposition home or self-care (01) | LOC: NFLDREF 03-29 15:39 | PROVIDERS: Visit Provider Family Medicine | DX: I10 Essential (primary) hypertension (principal) | CPT/HCPCS: 80053 ==